=== PATIENT | male | born 1990 | race Caucasian/White ===

== ENCOUNTER 2018-12-24 15:05 | Emergency (ER) | payer SELFPAY ==
[2018-12-24] MEDS ORDERED: OXYCODONE-ACETAMINOPHEN 5-325 MG TABLET PO ONE ×2 (15:46→18:05)
--- NOTE | 2018-12-24 15:49 | ER Document Report ---
ED Medical Screen (RME) - General Chief Complaint: Hand Injury Stated Complaint: LEFT HAND THUMB INJURY Time Seen by Provider: 12/24/18 15:45 Primary Care Provider: JOLENE DENNY MD [Primary Care Provider] - Follow up as needed Notes: Patient is a 28-year-old male who presents to emergency department with a chief complaint of left thumb injury. Patient reports around 2 PM he was using hedge tremors when his thumb got caught in between. Patient reports a jagged laceration to the underside of his left thumb. Patient reports active bleeding. Patient reports his tetanus shot is up-to-date within the past 5 years. TRAVEL OUTSIDE OF THE [place] IN LAST 30 DAYS: No - Related Data Allergies/Adverse Reactions: No Known Allergies Allergy (Verified 12/24/18 15:42) Physical Exam - Vital signs Vitals: Temp Pulse Resp BP Pulse Ox 98 F 97 18 135/82 H 97 12/24/18 15:29 12/24/18 15:29 12/24/18 15:29 12/24/18 15:29 12/24/18 15:29 - Extremities Notes: Patient has a jagged laceration to the volar aspect of the left distal thumb. There does not appear to be significant nail involvement. Patient has less than 2-second cap refill to the left thumb. Patient has strong flexion extension of the left thumb. Course - Re-evaluation Re-evalutation: 12/24/18 15:48 We will obtain an x-ray to rule out bony abnormality of the left thumb. Laceration was wrapped with wet-to-dry dressing in triage. Patient to be given pain medication. - Vital Signs Vital signs: Temp Pulse Resp BP Pulse Ox 98 F 97 18 135/82 H 97 12/24/18 15:29 12/24/18 15:29 12/24/18 15:29 12/24/18 15:29 12/24/18 15:29 Doctor's Discharge - Discharge Referrals: JOLENE DENNY MD [Primary Care Provider] - Follow up as needed
--- NOTE | 2018-12-24 16:14 | RADIOLOGY REPORT (SQ) ---
EXAM DESCRIPTION: FINGER LEFT COMPLETED DATE/TIME: 12/24/2018 4:03 pm REASON FOR STUDY: left thumb laceration COMPARISON: None. NUMBER OF VIEWS: Three views. TECHNIQUE: AP, lateral, and oblique images acquired of the left thumb. LIMITATIONS: None. FINDINGS: MINERALIZATION: Normal. BONES: No acute fracture or dislocation. No worrisome bone lesions. SOFT TISSUES: No soft tissue swelling. No foreign body. OTHER: No other significant finding. IMPRESSION: NO RADIOGRAPHIC EVIDENCE OF ACUTE INJURY. TECHNICAL DOCUMENTATION: JOB ID: [id number] [employer]- All Rights Reserved Reading location - [email or web address]
[2018-12-24] MEDS ORDERED: KETOROLAC TROMETHAMINE INJ/PF 30 MG/1 ML SDV IM ONE (18:05)
--- NOTE | 2018-12-24 20:09 | ER Document Report ---
ED General - General Chief Complaint: Laceration Stated Complaint: LEFT HAND THUMB INJURY Time Seen by Provider: 12/24/18 15:45 Primary Care Provider: JOLENE DENNY MD [ACTIVE STAFF] - Follow up as needed TRAVEL OUTSIDE OF THE [place] IN LAST 30 DAYS: No - HPI Patient complains to provider of: laceration to finger Notes: Lt thumb laceration from gas hedge clippers his tetanus is up todate bleeding is controlled able to feel thumb and move it normally - Related Data Allergies/Adverse Reactions: No Known Allergies Allergy (Verified 12/24/18 15:42) Past Medical History - Social History Smoking Status: Current Every Day Smoker Chew tobacco use (# tins/day): No Frequency of alcohol use: Occasional Drug Abuse: None Family History: Reviewed & Not Pertinent Patient has suicidal ideation: No Patient has homicidal ideation: No Review of Systems - Review of Systems Constitutional: No symptoms reported EENT: No symptoms reported Cardiovascular: No symptoms reported Respiratory: No symptoms reported Gastrointestinal: No symptoms reported Genitourinary: No symptoms reported Male Genitourinary: No symptoms reported Musculoskeletal: No symptoms reported Skin: Other - laceration Hematologic/Lymphatic: No symptoms reported Neurological/Psychological: No symptoms reported Physical Exam - Vital signs Vitals: Temp Pulse Resp BP Pulse Ox 98 F 97 18 135/82 H 97 12/24/18 15:29 12/24/18 15:29 12/24/18 15:29 12/24/18 15:29 12/24/18 15:29 Interpretation: Normal - General General appearance: Appears well, Alert - HEENT Head: Normocephalic, Atraumatic Eyes: Normal Pupils: PERRL - Respiratory Respiratory status: No respiratory distress Chest status: Nontender Breath sounds: Normal Chest palpation: Normal - Cardiovascular Rhythm: Regular Heart sounds: Normal auscultation Murmur: No - Abdominal Inspection: Normal Distension: No distension Bowel sounds: Normal Tenderness: Nontender Organomegaly: No organomegaly - Back Back: Normal, Nontender - Extremities General upper extremity: Normal inspection, Nontender, Normal color, Normal ROM, Normal temperature General lower extremity: Normal inspection, Nontender, Normal color, Normal ROM, Normal temperature, Normal weight bearing. No: Floyd's sign - Neurological Neuro grossly intact: Yes Cognition: Normal Orientation: AAOx4 Teresa Coma Scale Eye Opening: Spontaneous Teresa Coma Scale Verbal: Oriented [place] Coma Scale Motor: Obeys Commands [place] Coma Scale Total: 15 Speech: Normal Motor strength normal: LUE, RUE, LLE, RLE Sensory: Normal - Psychological Associated symptoms: Normal affect, Normal mood - Skin Skin Temperature: Warm Skin Moisture: Dry Skin Color: Normal Notes: macerated skin to left thumb on palmar aspect of DIP. no exposed bone. bleeding controlled. sensation intact. wound is gaping Course - Re-evaluation Re-evalutation: 12/24/18 21:17 gaping macerated thumb wound 3 stitches to reapproximate the tissue somewhat refer to hand surgeon as an outpt keflex for antimicrobial prophylaxis - Vital Signs Vital signs: Temp Pulse Resp BP Pulse Ox 97.7 F 90 18 137/83 H 99 12/24/18 20:33 12/24/18 20:33 12/24/18 20:33 12/24/18 20:33 12/24/18 20:33 Procedures - Laceration/Wound Repair Left Finger Thumb Time completed: 15:00 Wound length (cm): 3 Wound's Depth, Shape: Into muscle, Other - macerated tissue Anesthetic type: 2% Lidocaine Volume Anesthetic (mLs): 3 Wound explored: Contaminated Irrigated w/ Saline (mLs): 150 Wound Debrided: Minimal Wound Repaired With: Sutures Suture Size/Type: 4:0, Prolene Number of Sutures: 3 Post-procedure NV exam normal: Yes Complications: No Notes: 12/24/18 21:18 wound is contaminated and macerated - loose reapproximation of tissue w/ bulky dressing Discharge - Discharge Clinical Impression: Elevated blood pressure reading Laceration of thumb Qualifiers: Encounter type: initial encounter Damage to nail status: without damage Foreign body presence: without foreign body Laterality: left Qualified Code(s): S61.012A - Laceration without foreign body of left thumb without damage to nail, initial encounter Condition: Stable Disposition: HOME, SELF-CARE Instructions: Antibiotic Ointment Protection ([facility]), Laceration Care ([facility]), Prophylactic Antibiotic ([facility]) Additional Instructions: follow up with hand specialist to be sure this heals and does not become infected take antibiotic as directed have stitches removed in 10-14 days Prescriptions: Cephalexin Monohydrate [Keflex 500 mg Capsule] 500 mg PO Q6H 5 Days capsule Oxycodone HCl/Acetaminophen [Percocet 5-325 mg Tablet] 1 - 2 tab PO Q4H PRN #10 tablet PRN Reason: Referrals: JOLENE DENNY MD [ACTIVE STAFF] - Follow up as needed DAVID LOTT DO [ACTIVE STAFF] - Follow up as needed
[2018-12-24] MEDS ORDERED: LIDOCAINE 2% INJ-PF (20 MG/ML) 10 ML AMPUL INFIL ONE (20:23)
[2018-12-24] MEDS ORDERED: CEPHALEXIN 500 MG CAPSULE PO ONE (20:23)
[2018-12-24 22:26] VITALS: BP 125/75
== END 2018-12-24 21:15 | disposition home or self-care (01) ==
LOC: ER 15:05
DX: S61.012A Laceration without foreign body of left thumb without damage to nail, initial encounter (principal); W29.3XXA Contact with powered garden and outdoor hand tools and machinery, initial encounter; Y93.H2 Activity, gardening and landscaping; Y92.009 Unspecified place in unspecified non-institutional (private) residence as the place of occurrence of the external cause; F17.200 Nicotine dependence, unspecified, uncomplicated; R03.0 Elevated blood-pressure reading, without diagnosis of hypertension
CPT/HCPCS: 73140; 12002; J1885; J3490